=== PATIENT | female | born 1940 | race Two or more races ===

== ENCOUNTER → 2018-02-25 | Outpatient (CLI) | payer MEDICARE, MEDICAID ==
--- NOTE | 2018-02-25 15:35 | RADIOLOGY REPORT (SQ) ---
EXAM DESCRIPTION: CHEST PA/LATERAL COMPLETED DATE/TIME: 02/25/2018 3:27 pm REASON FOR STUDY: COUGH COMPARISON: None. EXAM PARAMETERS: NUMBER OF VIEWS: two views TECHNIQUE: Digital Frontal and Lateral radiographic views of the chest acquired. RADIATION DOSE: NA LIMITATIONS: none FINDINGS: LUNGS AND PLEURA: No opacities, masses or pneumothorax. No pleural effusion. MEDIASTINUM AND HILAR STRUCTURES: No masses or contour abnormalities. HEART AND VASCULAR STRUCTURES: Cardiomegaly with left chest multi lead pacer defibrillator. BONES: No acute findings. HARDWARE: None in the chest. OTHER: No other significant finding. IMPRESSION: Cardiomegaly without acute abnormality of the lungs. No focal airspace opacity. TECHNICAL DOCUMENTATION: JOB ID: [id number] [employer]- All Rights Reserved Reading location - IP/workstation name: [email or web address]
== END ==
LOC: OD 15:15
PROVIDERS: ATTEND Nurse Practitioner Family
DX: R05 Cough (principal)
CPT/HCPCS: 71046

== ENCOUNTER 2018-10-04 11:52 | Emergency (ER) | payer MEDICARE, MEDICAID ==
[2018-10-04 12:21] LABS: ABSOLUTE EOSINOPHILS # (AUTO) 0.1 10^3/uL (0.0-0.6); ABSOLUTE LYMPHOCYTES (AUTO) 0.9 10^3/uL (0.5-4.7); ABSOLUTE MONOCYTES (AUTO) 0.6 10^3/uL (0.1-1.4); ABSOLUTE NEUT (AUTO) 2.5 10^3/uL (1.7-8.2); BASOPHILS % (AUTO) 0.7 % (0-2); EOSINOPHILS % (AUTO) 1.8 % (0-6); HEMATOCRIT 31.7 % (36.0-47.0); HEMOGLOBIN 10.5 g/dL (12.0-15.5); MEAN CORPUSCULAR HEMOGLOBIN 28.7 pg (27.0-33.4); MEAN CORPUSCULAR HGB CONC 33.2 g/dL (32.0-36.0); MEAN CORPUSCULAR VOLUME 87 fl (80-97); MONOCYTES % (AUTO) 13.8 % (3-13); PLATELET COUNT 149 10^3/uL (150-450); RED BLOOD COUNT 3.67 10^6/uL (3.72-5.28); RED CELL DISTRIBUTION WIDTH 13.6 % (11.5-14.0); SEGMENTED NEUTROPHILS % (AUTO) 61.7 % (42-78); TOTAL CELLS COUNTED % (AUTO) 100 %; WHITE BLOOD COUNT 4.1 10^3/uL (4.0-10.5)
[2018-10-04 12:33] LABS: ALBUMIN 3.7 g/dL (3.5-5.0); ALKALINE PHOSPHATASE 65 U/L (38-126); ASPARTATE AMINO TRANSFERASE 24 U/L (14-36); BILIRUBIN,DIRECT 0.1 mg/dL (0.0-0.4); BILIRUBIN,TOTAL 0.3 mg/dL (0.2-1.3); BLOOD UREA NITROGEN 15 mg/dL (7-20); CALCIUM 8.8 mg/dL (8.4-10.2); CARBON DIOXIDE 30 mmol/L (22-30); CREATINE KINASE 36 U/L (30-135); GLUCOSE 97 mg/dL (75-110); POTASSIUM 4.2 mmol/L (3.6-5.0); TOTAL PROTEIN 6.1 g/dL (6.3-8.2)
[2018-10-04 12:38] LABS: ANION GAP 6 (5-19); CHLORIDE 98 mmol/L (98-107)
[2018-10-04] MEDS ORDERED: ALBUTEROL SULFATE 0.083% NEB 2.5 MG/3 ML AMPUL NEB ONE (12:39)
--- NOTE | 2018-10-04 12:42 | ER Document Report ---
Addendum entered and electronically signed by MICHAEL CAPUTO FNP 10/04/18 12:42: ED Medical Screen (RME) - General Chief Complaint: Syncope Stated Complaint: WEAKNESS Time Seen by Provider: 10/04/18 12:30 Primary Care Provider: MIGUEL HERRERA FNP-C [Primary Care Provider] - Follow up as needed Notes: Patient states that she has a history of asthma and felt a little short of breath. She also has a pacemaker placed and she also states that she has hypertension and is on medications, but cannot recall which medication she is on. TRAVEL OUTSIDE OF THE [place] IN LAST 30 DAYS: No - Related Data Allergies/Adverse Reactions: Contrast Dye Allergy (Uncoded 10/04/18 12:15) Original Note: ED Medical Screen (RME) - General Chief Complaint: Syncope Stated Complaint: WEAKNESS Time Seen by Provider: 10/04/18 12:30 Primary Care Provider: MIGUEL HERRERA FNP-C [Primary Care Provider] - Follow up as needed Notes: Patient is a 78-year-old female who presents the emergency department after syncopal episode. She states that she woke up this morning and felt a lot in her abdomen. She felt nauseous this morning and felt a sharp pain in her mid upper chest. She felt nauseous at that time, but denies any pain at this time. When she was at [employer] her friend noticed that she became a little glassy eyed and she ended up passing out. Patient states that she did lose some consciousness. Exam: Soft nontender abdomen. 5 out of 5 strength in all extremities. I have greeted and performed a rapid initial assessment of this patient. A comprehensive ED assessment and evaluation of the patient, analysis of test results and completion of medical decision making process will be conducted by an additional ED providers. TRAVEL OUTSIDE OF THE [place] IN LAST 30 DAYS: No - Related Data Allergies/Adverse Reactions: Contrast Dye Allergy (Uncoded 10/04/18 12:15) Past Medical History - Social History Chew tobacco use (# tins/day): No Frequency of alcohol use: None Drug Abuse: None Renal/ Medical History: Denies: Hx Peritoneal Dialysis Course - Laboratory Result Diagrams: 10/04/18 11:55 10/04/18 11:55 Laboratory results interpreted by me: 10/04/18 11:55 RBC 3.67 L Hgb 10.5 L Hct 31.7 L Plt Count 149 L Monocytes % 13.8 H Doctor's Discharge - Discharge Referrals: MIGUEL HERRERA FNP-C [Primary Care Provider] - Follow up as needed
[2018-10-04 12:45] LABS: CREATINE KINASE MB 0.87 ng/mL (<4.55); TROPONIN I < 0.012 ng/mL
--- NOTE | 2018-10-04 13:08 | RADIOLOGY REPORT (SQ) ---
EXAM DESCRIPTION: CHEST SINGLE VIEW COMPLETED DATE/TIME: 10/04/2018 12:57 pm REASON FOR STUDY: shortness of breath COMPARISON: 02/25/2018 EXAM PARAMETERS: NUMBER OF VIEWS: One view. TECHNIQUE: Single frontal radiographic view of the chest acquired. RADIATION DOSE: NA LIMITATIONS: None. FINDINGS: LUNGS AND PLEURA: No opacities, masses or pneumothorax. No pleural effusion. MEDIASTINUM AND HILAR STRUCTURES: No masses. Contour normal. HEART AND VASCULAR STRUCTURES: Heart normal in size. Normal vasculature. BONES: No acute findings. HARDWARE: Cardiac unchanged. OTHER: No other significant finding. IMPRESSION: NO ACUTE RADIOGRAPHIC FINDING IN THE CHEST. TECHNICAL DOCUMENTATION: JOB ID: [id number] [employer]- All Rights Reserved Reading location - IP/workstation name: [email or web address]
--- NOTE | 2018-10-04 13:11 | RADIOLOGY REPORT (SQ) ---
EXAM DESCRIPTION: CT HEAD WITHOUT COMPLETED DATE/TIME: 10/04/2018 1:02 pm REASON FOR STUDY: syncope COMPARISON: None. TECHNIQUE: Axial images acquired through the brain without intravenous contrast. Images reviewed wi th bone, brain and subdural windows. Additional sagittal and coronal reconstructions were generated. Images stored on PACS. All CT scanners at this facility use dose modulation, iterative reconstruction, and/or weight based d osing when appropriate to reduce radiation dose to as low as reasonably achievable (ALARA). [facility]: Dose Right [facility]: CareDose [facility]: Dose Right [facility]: Teradose 4D [facility]: trivago RADIATION DOSE: CT Rad equipment meets quality standard of care and radiation dose reduction techniq ues were employed. CTDIvol: 53.2 mGy. DLP: 937 mGy-cm. mGy. LIMITATIONS: None. FINDINGS: VENTRICLES: Normal size and contour. CEREBRUM: No masses. No hemorrhage. No midline shift. No evidence for acute infarction. Normal gra y/white matter differentiation. No areas of low density in the white matter. CEREBELLUM: No masses. No hemorrhage. No alteration of density. No evidence for acute infarction. EXTRAAXIAL SPACES: No fluid collections. No masses. ORBITS AND GLOBE: No intra- or extraconal masses. Normal contour of globe without masses. CALVARIUM: No fracture. PARANASAL SINUSES: No fluid or mucosal thickening. SOFT TISSUES: No mass or hematoma. OTHER: No other significant finding. IMPRESSION: No acute intracranial pathology. EVIDENCE OF ACUTE STROKE: NO. COMMENT: Quality ID # [id number]: Final reports with documentation of one or more dose reduction techniques (e.g., Automated exposure control, adjustment of the mA and/or kV according to patient size, use of iterative reconstruction technique) TECHNICAL DOCUMENTATION: JOB ID: [id number] [employer] All Rights Reserved Reading location - IP/workstation name: [email or web address]
[2018-10-04] MEDS ORDERED: NORMAL SALINE 1000 ML 1,000 ML IV ONE (14:06)
--- NOTE | 2018-10-04 14:27 | EKG REPORT ---
SEVERITY:- ABNORMAL ECG - ATRIAL-VENTRICULAR DUAL-PACED RHYTHM : Confirmed by: Sal Shirley MD 04-Oct-2018 14:26:52
--- NOTE | 2018-10-04 14:53 | ER Document Report ---
ED General - General Chief Complaint: Syncope Stated Complaint: WEAKNESS Time Seen by Provider: 10/04/18 12:30 Primary Care Provider: MIGUEL HERRERA FNP-C [Primary Care Provider] - Follow up as needed Notes: 78-year-old female presents emergency department after syncopal episode in [employer]. Patient states that she was in [employer] and they were standing for communion when she began to feel sweaty and chilled and just feel "awful" after that the patient remembers waking up and feeling somewhat confused laying in the pew. Friend who was there states that she was wobbling back and forth and someone caught her, she laid there limp with her eyes open without any seizure activity for a few minutes and then when she woke up it took her a few minutes to return to normal. Denies any chest pain, states that she had some pain in her epigastrium which has since resolved and some nausea which has since resolved. Denies any headache, denies any chest pain or shortness of breath. Denies any similar happening in the past. Patient has a pacemaker and defibrillator. Patient states it is only a defibrillator however I can look at her EKG and see that it is a pacemaker. States that the last time it was checked within the past 1 to 2 months it was working without difficulty. TRAVEL OUTSIDE OF THE [place] IN LAST 30 DAYS: No - Related Data Allergies/Adverse Reactions: Contrast Dye Allergy (Uncoded 10/04/18 12:15) Past Medical History - General Information source: Patient, Friend, Emergency Med Personnel - Social History Smoking Status: Former Smoker - Quit 30 years ago Chew tobacco use (# tins/day): No Frequency of alcohol use: None Drug Abuse: None Family History: Reviewed & Not Pertinent Patient has suicidal ideation: No Patient has homicidal ideation: No Renal/ Medical History: Denies: Hx Peritoneal Dialysis Review of Systems - Review of Systems Constitutional: See HPI - Syncope, Chills, Diaphoresis EENT: No symptoms reported Cardiovascular: See HPI Respiratory: No symptoms reported Gastrointestinal: See HPI, Abdominal pain, Nausea Neurological/Psychological: See HPI -: Yes All other systems reviewed and negative Physical Exam - Notes Notes: GENERAL: Alert, interacts well. No acute distress. Laughing and making jokes. In good humor. HEAD: Normocephalic, atraumatic EYES: Left pupil is round and reactive to light, extraocular movements are intact bilaterally, right pupil is somewhat irregular, iris is somewhat discolored/opacified due to prior trauma. ENT: Oral mucosa moist, tongue midline. NECK: Full range of motion, supple, trachea midline. LUNGS: Clear to auscultation bilaterally, no wheezes, rales or rhonchi, no respiratory distress. HEART: Regular rate and rhythm, no murmurs, gallops, rubs. ABDOMEN: Soft, nontender, nondistended, bowel sounds present in all 4 quadrants. EXTREMITIES: Moves all 4 extremities spontaneously, no edema, radial and dorsalis pedis pulses 2/4 bilaterally. No cyanosis. NEUROLOGICAL: Alert and oriented x3, normal speech, cranial nerves II through XII grossly intact, biceps and patellar DTRs 2+ bilaterally. Finger-nose and [id number] testing intact. PSYCH: Normal mood, normal affect. SKIN: Warm, Dry, normal turgor, no rashes or lesions noted. Course - Re-evaluation Re-evalutation: 10/04/18 14:53 no events since last recheck on September 09, 2018. Per pacemaker report it appears to be functioning well. 10/04/18 14:56 CBC shows anemia with a hemoglobin 12.5, not low enough to cause syncope, platelets are low 149, no leukocytosis, chemistries grossly unremarkable, troponin normal, CT scan of the head unremarkable, chest x-ray unremarkable, interrogation of the pacemaker as above. Patient is feeling completely back to baseline now. Patient will be ambulated and if she has no difficulty she will be discharged home after her liter of saline infuses. Requested that she follow-up with cardiology as an outpatient. - Laboratory Result Diagrams: 10/04/18 11:55 10/04/18 11:55 Laboratory results interpreted by me: 10/04/18 10/04/18 11:55 11:55 RBC 3.67 L Hgb 10.5 L Hct 31.7 L Plt Count 149 L Monocytes % 13.8 H Sodium 134.2 L Est GFR (Non-Af Amer) 55 L Total Protein 6.1 L - EKG Interpretation by Me Additional EKG results interpreted by me: 10/04/18 14:56 EKG shows an atrially and ventricularly dual paced rhythm at a rate of 70, T wave inversions in lead II, lead III, aVF, V3, no ST segment elevations or depressions no old EKG available for comparison per my interpretation. Discharge - Discharge Clinical Impression: Syncope Qualifiers: Syncope type: unspecified Qualified Code(s): R55 - Syncope and collapse Condition: Stable Disposition: HOME, SELF-CARE Additional Instructions: Please follow-up with Dr. St and Dr. Rm as an outpatient. Today we found that you are mildly anemic but there were no serious abnormalities on your laboratory studies. Your pacemaker appears to be functioning well. It is very important that she return to the emergency dep artment if you pass out again. Please do not drive until you have been cleared by your doctor.
[2018-10-04 15:30] VITALS: BP 148/84
== END 2018-10-04 15:32 | disposition home or self-care (01) ==
LOC: ER 11:52
DX: R55 Syncope and collapse (principal); D64.9 Anemia, unspecified; R68.83 Chills (without fever); R61 Generalized hyperhidrosis; R11.0 Nausea; R10.13 Epigastric pain; Z95.810 Presence of automatic (implantable) cardiac defibrillator; Z91.041 Radiographic dye allergy status; Z87.891 Personal history of nicotine dependence
CPT/HCPCS: 93005; 94640; 99285; 96360; 36415; 82553; 82550; 83690; 85025; 80053; 84484; 71045; 70450; 93010; J7030; A9270